=== PATIENT | male | born 1960 | race Caucasian/White ===

== ENCOUNTER 2023-06-11 11:03 | Emergency (ER) | payer MEDICAID, SELFPAY ==
[2023-06-11] VITALS (11 sets, daily range): BP systolic 159–178; BP diastolic 86–95; PULSE 71–89; RESP 13–18; TEMP 36.6–36.7; O2SAT 96–99
--- NOTE | ~2023-06-11 | XR_ITS ---
EXAMINATION: XR chest 2V DATE: 06/11/2023 11:36 INDICATION: Chest pain. TECHNIQUE: Frontal and lateral views of the chest were obtained. COMPARISON: Chest 2 views 08/26/2017 FINDINGS: There is no pneumonia, pleural effusion, or pneumothorax. The heart size is normal. IMPRESSION: 1. No acute cardiopulmonary disease. Reviewed, dictated and finalized at location A. VIBRATOR OPERATOR
--- NOTE | ~2023-06-11 | CT_ITS ---
EXAMINATION:CT diagnostic chest w con DATE: 06/11/2023 13:18 INDICATION: Right chest wall pain. TECHNIQUE: Computed tomography (CT) of the chest was performed with 75 mL Omnipaque 350 intravenous c ontrast. Automated exposure control and iterative reconstruction technique were employed. The dose-le ngth product (DLP) was 259.60 mGy-cm. COMPARISON: Chest 2 views 06/11/2023 FINDINGS: There is mild emphysema. There is mild scarring at the lung apices. In the right upper lobe , there is a 4.6 x 3.1 cm spiculated mass abutting the posterior mediastinum. No pleural effusion. Th e heart size is normal. There are coronary artery calcifications. No pericardial effusion. IMPRESSION: 1. 4.6 x 3.1 cm spiculated mass in right upper lobe abutting the posterior mediastinum, consistent wi primary bronchogenic carcinoma. CT-guided biopsy is recommended. 2. Mild emphysema. Reviewed, dictated and finalized at location A. ARCH TEST ENGINE EVALUATOR IMPRESSION: 1. 4.6 x 3.1 cm spiculated mass in right upper lobe abutting the posterior medi astinum, consistent with primary bronchogenic carcinoma. CT-guided biopsy is re commended. 2. Mild emphysema.
--- NOTE | 2023-06-11 11:13 | ECG_ITS ---
Measurements Intervals [place] Rate: 77 P: 55 NV: 149 QRS: 11 QRSD: 86 T: 42 QT: 342 QTc: 388 Interpretive Statements SINUS RHYTHM POSSIBLE LEFT ATRIAL ENLARGEMENT [-0.1mV P WAVE IN V1/V2] NO PREVIOUS ECG AVAILABLE FOR COMPARISON Electronically Signed On 06-11-2023 13:52:10 DAIRY PRODUCTS MAKER by Elizabeth Beck M.D.
[2023-06-11] MEDS: ASPIRIN 81 MG CHEWABLE TABLET 324 MG PO (11:23)
[2023-06-11 11:29] LABS: Basophils Absolute Auto 0.1 K/mm3 (0.0-0.1); Basophils Percent Auto 0.7 % (0.2-1.2); Eosinophils Absolute Auto 0.2 K/mm3 (0-0.3); Eosinophils Percent Auto 1.9 % (0-4.4); Hematocrit 44.1 % (42.0-52.0); Hemoglobin 14.2 g/dL (14.0-18.0); Immature Granulocyte Absolute 0.02 K/mm3 (0.00-0.031); Immature Granulocyte Percent A 0.2 % (0-0.5); Lymphocytes Absolute Auto 1.52 K/mm3 (0.9-3.2); Lymphocytes Percent Auto 16.7 % (18.3-44.2); Mean Corpuscular HGB Conc 32.2 g/dl (32-36); Mean Corpuscular Hemoglobin 29.6 pg (26-34); Mean Corpuscular Volume 92.1 fl (80-100); Mean Platelet Volume 8.5 fl (7.4-10.4); Monocytes Absolute Auto 0.7 K/mm3 (0.1-0.6); Monocytes Percent Auto 7.9 % (2.6-8.5); Neutrophils Absolute Auto 6.6 K/mm3 (1.3-6.7); Neutrophils Percent Auto 72.6 % (45.5-73.1); Platelet Count Result 378 k/mm3 (150-375); Red Blood Count 4.79 M/mm3 (4.6-6.20); Red Cell Distribution Width 12.5 % (11.5-14.5); White Blood Count 9.1 K/mm3 (4.5-10.0)
[2023-06-11 11:39] LABS: Prothrombin Time 13.2 Seconds (11.1-14.7)
[2023-06-11 11:40] LABS: Partial Thromboplastin Time 32.3 SECONDS (22.3-36.8)
[2023-06-11 11:47] LABS: Alanine Aminotransferase 18 U/L (6-50); Alkaline Phosphatase 106 U/L (38-126); Anion Gap 7 mmol/L (8-16); Aspartate Amino Transferase 26 U/L (17-59); Bilirubin,Total 0.5 mg/dL (0.2-1.3); Blood Urea Nitrogen 13 mg/dL (9-20); Calcium 9.6 mg/dL (8.4-10.2); Carbon Dioxide 21 mmol/L (22-30); Chloride 105 mmol/L (98-107); Estimated CRCL calculation 94 ml/min; Estimated Glomerular Filt Rate > 60; Glucose 160 mg/dL (65-110); Lipase 142 U/L (23-300); Potassium 4.5 mmol/L (3.4-5.0); Sodium 133 mmol/L (137-145)
[2023-06-11 11:58] LABS: Troponin I < 0.012 ng/mL (0.000-0.034)
--- NOTE | 2023-06-11 12:21 | ED.CHESTPAIN ---
HPI - Chest Pain General Chief Complaint: Chest Pain Stated Complaint: Right sd chest pain Time Seen by Provider: 06/11/23 11:22 History of Present Illness HPI narrative: 62-year-old male presenting emergency department for evaluation right-sided chest pain That has been ongoing for the last few months. Patient has not had follow-up with his primary care physician for this. Patient is a long-term smoker. Related Data Allergies Allergy/AdvReac Type Severity Reaction Status Date / Time No Known Allergies Allergy Unverified 06/20/23 14:06 Review of Systems Review of Systems: All systems reviewed & are unremarkable except as noted in HPI and below Exam Narrative: APPEARANCE: Well appearing, no pain, no distress, well-nourished. HEAD: normocephalic, atraumatic. EYES: PERRLA/EOMI, conjunctivae clear. NOSE: Normal no drainage EARS:TMS clear with good light reflex. THROAT: Pharynx clear, no exudate. NECK: Supple. No adenopathy, no masses. RESPIRATORY: Airway patent, respirations nonlabored. Clear to auscultation bilaterally, no rales, rhonchi, wheezing. CARDIOVASCULAR: Regular rate and rhythm without murmurs rubs or gallops. ABDOMINAL: Soft, nontender, nondistended, normal bowel sounds MUSCULOSKELETAL: Moves all extremities. Strength/ROM intact, No edema, No calf tenderness. NEURO: Alert. Cranial nerves II through XII intact. Good gait. Good coordination SKIN: Warm, dry. Normal Color Course Course Emergency Course: 8-year-old male presenting emergency department for evaluation for right-sided chest pain. Chest CT did show a spiculated mass that was concerning for bronchogenic carcinoma. I did discuss the case with pulmonology and they will see the patient as follow-up. Patient will also be set up with a primary care physician. Vital Signs Vital signs: Vital Signs Temperature 98.0 F 06/11/23 11:11 Pulse Rate 89 06/11/23 11:11 Respiratory Rate 18 06/11/23 11:11 Blood Pressure 175/95 H 06/11/23 11:11 Pulse Oximetry 98 06/11/23 11:11 Oxygen Delivery Room Air 06/11/23 11:11 Temperature 98.0 F 06/11/23 15:07 Pulse Rate 75 06/11/23 15:07 Respiratory Rate 16 06/11/23 15:07 Blood Pressure 176/93 H 06/11/23 15:07 Pulse Oximetry 98 06/11/23 15:07 Oxygen Delivery Room Air 06/11/23 11:13 MDM - Chest Pain Lab Data 06/11/23 11:19 06/11/23 11:19 Labs: Lab Results 06/11/23 06/11/23 Range/Units 11:19 14:09 WBC 9.1 (4.5-10.0) K/mm3 RBC 4.79 (4.6-6.20) M/mm3 Hgb 14.2 (14.0-18.0) g/dL Hct 44.1 (42.0-52.0) % MCV 92.1 (80-100) fl MCH 29.6 (26-34) pg MCHC 32.2 (32-36) g/dl RDW 12.5 (11.5-14.5) % Plt Count 378 H (150-375) k/mm3 MPV 8.5 (7.4-10.4) fl Immature Gran % (Auto) 0.2 (0-0.5) % Neut % (Auto) 72.6 (45.5-73.1) % Lymph % (Auto) 16.7 L (18.3-44.2) % Crook % (Auto) 7.9 (2.6-8.5) % Eos % (Auto) 1.9 (0-4.4) % Baso % (Auto) 0.7 (0.2-1.2) % Lymph # (Auto) 1.52 (0.9-3.2) K/mm3 Crook # (Auto) 0.7 H (0.1-0.6) K/mm3 Eos # (Auto) 0.2 (0-0.3) K/mm3 Baso # (Auto) 0.1 (0.0-0.1) K/mm3 Abs Immat Gran (auto) 0.02 (0.00-0.031) K/mm3 Absolute Neuts (auto) 6.6 (1.3-6.7) K/mm3 Absolute Nucleated RBC 0.0 (0.0-0.012) K/mm3 Nucleated RBC % 0.0 (0.0-0.2) % PT 13.2 (11.1-14.7) Seconds INR 1.0 APTT 32.3 (22.3-36.8) SECONDS Sodium 133 L (137-145) mmol/L Potassium 4.5 (3.4-5.0) mmol/L Chloride 105 (98-107) mmol/L Carbon Dioxide 21 L (22-30) mmol/L Anion Gap 7 L (8-16) mmol/L BUN 13 (9-20) mg/dL Creatinine 0.80 (0.7-1.3) mg/dL Estim Creat Clear Calc 94 ml/min Estimated GFR > 60 (59 - ) Glucose 160 H (65-110) mg/dL Calcium 9.6 (8.4-10.2) mg/dL Total Bilirubin 0.5 (0.2-1.3) mg/dL AST 26 (17-59) U/L ALT 18 (6-50) U/L Alkaline Phosphatase 106 (38-126) U/L Troponin I < 0.012 < 0.012 (0.000-0.034) ng/mL
--- NOTE | 2023-06-11 14:08 | ECG_ITS ---
Measurements Intervals [place] Rate: 67 P: 53 ME: 149 QRS: 39 QRSD: 91 T: 44 QT: 363 QTc: 383 Interpretive Statements SINUS RHYTHM POSSIBLE LEFT ATRIAL ENLARGEMENT [-0.1mV P WAVE IN V1/V2] COMPARED TO ECG 06/11/2023 11:15:33 NO SIGNIFICANT CHANGES Electronically Signed On 06-12-2023 14:59:50 TAXONOMY TEACHER by Elizabeth Beck M.D.
[2023-06-11 14:39] LABS: Troponin I < 0.012 ng/mL (0.000-0.034)
== END 2023-06-11 15:10 | disposition home or self-care (01) ==
PROVIDERS: Emergency Provider Emergency Medicine
DX: R91.8 Other nonspecific abnormal finding of lung field (principal); R94.31 Abnormal electrocardiogram [ECG] [EKG]
CPT/HCPCS: 36415; 71046; 71260; 80053; 83690; 84484; 85025; 85610; 85730; 93005; 99284; A9270; Q9967

== ENCOUNTER 2023-07-29 11:36 | Outpatient (CLI) | payer MEDICAID, SELFPAY ==
--- NOTE | 2023-08-19 10:51 | WPDPFTINT ---
PFT Procedure Performed PFT Procedure Performed Plethysmography (Lung Vol) Diffusing Cap (DLCO) Flow Vol Loop Spirometry w/o Bronchodil PFT Interpretation DOS: 07/29/2023 REQUESTING: Hunter Kaiser MD REASON FOR TESTING: lung cancer PULMONARY FUNCTION TESTS As of August 02, 2022, the Global Lung Initiative reference equations are used in interpretation of spirometry, lung volumes and diffusing capacity. Race and ethnicity are not included as variables in the interpretation strategy. Results are reliable and reproducible. Repeatability of spirometry FEV1 maneuver is Grade A. Spirometry: The FEV1 is 3.37 L, 89%, normal.. The FVC is 4.13 L, 84%, normal. The FEV1/FVC ratio is 82%, normal. Lung volumes: The total lung capacity is 6.82 L, 92%. The residual volume is 2.69 L, 113%. The RV/TLC is 39%. Airway resistance is 139%. Diffusion: DLCO is 23.8, 82%. The DLCO/VA is 3.79, 92%. Flow volume loop: The flow volume loop is normal. IMPRESSION: This study shows normal spirometry, normal lung volumes and normal diffusion. No bronchodilator was administered. No prior studies for comparison. Gudelia Rivas MD
== END 2023-07-29 11:37 | disposition home or self-care (01) ==
PROVIDERS: PCP Emergency Medicine; Visit Provider Internal Medicine Hematology & Oncology
DX: C34.11 Malignant neoplasm of upper lobe, right bronchus or lung (principal)
CPT/HCPCS: 94375; 94726; 94729

== ENCOUNTER 2023-08-13 11:08 | Outpatient (CLI) | payer MEDICAID, SELFPAY ==
[2023-08-13 11:37] LABS: Basophils Percent Auto 0.1 % (0.2-1.2); Eosinophils Percent Auto 0.2 % (0-4.4); Hematocrit 43.1 % (42.0-52.0); Hemoglobin 14.4 g/dL (14.0-18.0); Immature Granulocyte Absolute 0.11 K/mm3 (0.00-0.031); Immature Granulocyte Percent A 0.7 % (0-0.5); Lymphocytes Absolute Auto 2.63 K/mm3 (0.9-3.2); Lymphocytes Percent Auto 16.3 % (18.3-44.2); Mean Corpuscular HGB Conc 33.4 g/dl (32-36); Mean Corpuscular Hemoglobin 30.1 pg (26-34); Mean Corpuscular Volume 90.2 fl (80-100); Mean Platelet Volume 8.7 fl (7.4-10.4); Monocytes Absolute Auto 1.3 K/mm3 (0.1-0.6); Monocytes Percent Auto 8.1 % (2.6-8.5); Neutrophils Percent Auto 74.6 % (45.5-73.1); Platelet Count Result 471 k/mm3 (150-375); Red Blood Count 4.78 M/mm3 (4.6-6.20); Red Cell Distribution Width 12.8 % (11.5-14.5); White Blood Count 16.1 K/mm3 (4.5-10.0)
[2023-08-13 11:51] LABS: Prothrombin Time 13.3 Seconds (11.1-14.7)
== END 2023-08-13 11:09 | disposition home or self-care (01) ==
LOC: ANHSURGERY 11:09
PROVIDERS: PCP Emergency Medicine; Visit Provider Surgery
DX: Z01.818 Encounter for other preprocedural examination (principal); C34.90 Malignant neoplasm of unspecified part of unspecified bronchus or lung
CPT/HCPCS: 36415; 85025; 85610; 85730

== ENCOUNTER 2023-08-19 04:43 | Day surgery (SDC) | payer MEDICAID, SELFPAY ==
[2023-08-12 15:42] VITALS: BMI 26.9
--- NOTE | 2023-08-12 15:50 | PC.NURSE ---
Report to the Outpatient Waiting Room, entrance under the green pavilion located off [facility], at time 11:30 on date 08/19/23. Planned Procedure Time: 1:30. Time changes happen often and if your time is changed the preop area will call you the afternoon before. - You and your visitor will be asked to self-screen and do not enter if you have any COVID symptoms. - A mask is optional within the hospital at this time. Patients may have clear liquids (water, carbonated beverages, clear teas, apple juice) until 3 hours prior to surgery (10:30) with a maximum of 20 ounces. - No food from midnight until time of surgery Take the following medications with a SIP of water the morning of surgery: STEROID AND PAIN PILL IF NEEDED DO NOT STOP ANY OF YOUR OTHER PRESCRIPTION MEDICATIONS PRIOR TO SURGERY ?EXCEPT THE FOLLOWING Medications to discontinue per physician: N/A Date to take last dose: N/A Please no make-up, nail korean, hairspray, perfume, deodorant, or body powder the day of surgery. No jewelry (including any body piercings) or valuables the day of surgery, leave them at home. Please take a shower or bath the night before, or the morning of, surgery with an antibacterial soap. Wear comfortable, loose fitting clothing. - Jewelry must be removed prior to entering the operating room. Rings and piercings that are not removed may be cut off. - The hospital will not accept responsibility for valuables. - Please leave all valuables, including medications, at home the day of surgery. If you are going home after surgery, a licensed flag car driver must drive you home. - NO public transportation without another adult if you receive anesthesia. - We recommend that an adult stay with you for 24 hours following discharge. - We also recommend that you do not drive, make important decision, drink alcoholic beverages, or take any drugs that were not prescribed by your health care provider for at least 24 hours after your discharge time. Follow any additional instructions given to you from your surgeon. If you or anyone in your household have experienced Covid symptoms in the past week, please notify your surgeon or the nurse liaison at the phone number below for possible testing. Telephone instructions given to PT AND SPOUSE and asked if any additional questions and then verbalized understanding. Patient advised to call surgeon office or pre surgery nurse liaison [phone] if any additional questions.
--- NOTE | ~2023-08-19 | XR_ITS ---
EXAMINATION: XR chest port-a-cath/central DATE: 08/19/2023 15:12 INDICATION: Port placement. TECHNIQUE: A single frontal view of the chest was obtained on 2 radiographs. COMPARISON: Chest 2 views 06/11/23, chest CT 06/11/23 FINDINGS: There is mild scarring at the lung apices. No pleural effusion or pneumothorax. The heart s ize is normal. There is a right subclavian port with tip in superior vena cava. There are old healed left rib fractures. IMPRESSION: 1. Mild scarring at the lung apices. 2. Port tip in superior vena cava. Reviewed, dictated and finalized at location E.
--- NOTE | ~2023-08-19 | XR_ITS ---
EXAMINATION: XR fl guide central line place DATE: 08/19/2023 14:20 CDT INDICATION: PORT A CATH INSERTION . TECHNIQUE: 1 fluoroscopic image of the chest were obtained during Port-A-Cath insertion, performed by Cong Preito MD. I was not present during the procedure. Fluoroscopy exposure time was 25.1 second s. Air Kerma 4.7729 mGy. DAP 0.0946 mGym2. COMPARISON: None FINDINGS/IMPRESSION: Fluoroscopic documentation of Port-A-Cath insertion. Please refer to the operative note for complete procedural details. Reviewed, dictated and finalized at location K.
[2023-08-19 12:42] VITALS: BP 140/91; PULSE 79; RESP 14; TEMP 37.6; O2SAT 97
[2023-08-19] MEDS: LACTATED RINGERS 1,000 ML 30 ML IV CONT (12:48)
--- NOTE | 2023-08-19 13:00 | P.PNAN_ITS ---
Anes - Initial Pre Proc Eval Procedure: Operation Date: 08/19/23 13:30 Proposed Procedures p Insertion Romina Cath - Cong Prieto MD Date/Time: 08/19/23 13:00 Surgeon: Cong Prieto MD Pre Op Diagnosis: malignant neoplasm of right lung Patient Data Age: 63 Gender: M Height: 1.83 m Weight: 86 kg Last Vital Signs Temp 99.7 F H 08/19/23 12:42 Pulse 79 08/19/23 12:42 Resp 14 08/19/23 12:42 BP 140/91 H 08/19/23 12:42 Pulse Ox 97 08/19/23 12:42 O2 Del Method Room Air 08/19/23 12:42 Allergies Allergy/AdvReac Type Severity Reaction Status Date / Time No Known Allergies Allergy Verified 08/19/23 12:51 Home Medications Medication Instructions Recorded Confirmed Type dexamethasone 4 mg tablet 4 mg PO TID 08/12/23 08/13/23 History hydrocodone 10 mg-acetaminophen 1 tablet PO TID PRN Pain 08/12/23 08/19/23 History 325 mg tablet Patient hx anesthesia problems: none Family hx anesthesia problems: none Results Review: All pre-operative results and documents have been reviewed as part of the pre- operative evaluation. [facility] Social History Social History Smoking packs per day: 2 Smoking cigarettes per day: 40.0 Years smoked: 49 Smoking pack-years: 98.00 Smoking status: Current every day smoker Tobacco type: cigarettes Additional smoking assessment comments: smoking more than 2 packs at sometimes, and less than a pack currenetly Alcohol intake: current Drinks per week: 45 Alcohol use details: BEER [employer] WHISKEY Substance use: current Substance use type: marijuana Living arrangements: with family Spiritual care concerns: No Anes - Eval Final PreProcedure Day of Procedure 08/19/23 13:00 Patient weight: normal Heart: regular rate and rhythm Lungs: clear to auscultation and decreased breath sounds Airway: Mallampati scale and special considerations (Teeth in very poor repair throughout. None loose per his report. ) Neurological: alert and oriented Last oral intake: >/= 8 hours ASA classification: III Emergent: no Anesthetic plan: proceed Anesthesia type and monitoring: general GIVS and standard monitoring Results Review: All pre-operative results and documents have been reviewed as part of the pre- operative evaluation. Lung CA, w mets to spine, now for port. PFTs reviewed. Pt smokes cigarettes this am, approx 1100 am. Informed Consent: The patient's anesthetic plan and its attendant risks and benefits were discussed with the patient/family/POA. Questions were solicited and answers provided to the satisfaction of the patient/family/POA.
--- NOTE | 2023-08-19 14:08 | PM.IMHP ---
H&P: HPI History of Present Illness Date/Time: 08/19/23 14:08 Chief Complaint: Right lung CA Narrative: Pt diagnosed with right lung CA. He is to undergo Chem/Rad tx. Presents today for placement of portacatheter. Never had port in the past. Review of Systems Review of Systems: The remainder of the review of systems to include constitutional, HEENT, cardiovascular, respiratory, GI, , integumentary, musculoskeletal, endocrine, immunologic, hematologic, psychiatric, and neurologic are all negative except for which is mentioned above in the HPI. [facility] Social History Social History Smoking packs per day: 2 Smoking cigarettes per day: 40.0 Years smoked: 49 Smoking pack-years: 98.00 Smoking status: Current every day smoker Tobacco type: cigarettes Additional smoking assessment comments: smoking more than 2 packs at sometimes, and less than a pack currenetly Alcohol intake: current Drinks per week: 45 Alcohol use details: BEER [employer] WHISKEY Substance use: current Substance use type: marijuana Living arrangements: with family Spiritual care concerns: No Meds Home Medications and Allergies Home Medications Medication Instructions Recorded Confirmed Type dexamethasone 4 mg tablet 4 mg PO TID 08/12/23 08/13/23 History hydrocodone 10 mg-acetaminophen 1 tablet PO TID PRN Pain 08/12/23 08/19/23 History 325 mg tablet Allergies Allergy/AdvReac Type Severity Reaction Status Date / Time No Known Allergies Allergy Verified 08/19/23 12:51 Vital Signs Vital Signs - 24 hr 08/19/23 12:42 Temperature 37.6 C H Pulse Rate 79 Respiratory Rate 14 Blood Pressure 140/91 H Pulse Oximetry 97 Oxygen Delivery Room Air Exam Const: General: comfortable and no acute distress HENMT: Ears: TM's normal bilaterally Face/Nose/Sinus: Normal nares present Mouth: Yes moist mucous membranes Eyes: General: appearance normal, both eyes and all related structures Sclera: sclerae normal Pupils: Equal, round and reactive pupils present Neck: Neck: supple and no JVD Resp: Effort & Inspection: normal respiratory effort Auscultation: clear to auscultation bilaterally Cardio: Rate: regular rate Rhythm: regular rhythm GI: GI Palp: Yes Soft to palpation, No Firmness to palpation present (GI), No Tenderness to palpation present (GI), No Guarding due to palpation present (GI) and No Hernia present Skin: General skin exam: normal color and no rashes or lesions noted Neuro: General: gait normal Speech: normal speech Extrem: General: normal to inspection Psych: Mental Status: mental status grossly normal Affect: normal affect Assessment and Plan Assessment and plan (1) Lung cancer: Code(s): C34.90 - Malignant neoplasm of unspecified part of unspecified bronchus or lung Status: Acute Assessment and Plan: Pt has right lung ca, he is to undergo chemo/rad tx. Will place portacatheter today under IV sedation. Risks, benefits, indications, and expected outcomes were discussed in detail with the patient and/or family. They understand and I have answered all other questions. They wished to proceed with surgery as outlined above. Specific risk of iatrogenic pneumothorax and need for chest tube as well as bleeding needing blood transfusion discussed.
[2023-08-19] MEDS: ceFAZolin 2 GM/D5W 50 ML 2 GM/50 ML BAG IVPB (14:10)
--- NOTE | 2023-08-19 14:12 | WPDHPUPDATE1 ---
History and Physical Update Update Date/Time: 08/19/23 14:12 History and Physical has been reviewed, including an updated exam of the patient. There are NO changes in the patient's condition. Risks, benefits, and alternatives have been discussed and questions answered. Patient agrees to proceed with procedure.
[2023-08-19] MEDS: LIDO 1%/EPINEPHRINE 1:100,000 20 ML VIAL 10 ML INFILTRATE (14:41)
[2023-08-19] MEDS: BUPivacaine HCL 0.5% 10 ML AMP INFILTRATE (14:43)
[2023-08-19 14:56] VITALS: BP 133/63; PULSE 77; RESP 16; O2SAT 97
--- NOTE | 2023-08-19 14:57 | PM.OP ---
Procedure Note - Brief Procedure Note - Brief Date of procedure: 08/19/23 malignant neoplasm of right lung Post-op diagnosis: Same Procedure performed: Placement of right subclavian vein single-lumen port a catheter with intraoperative fluoroscopy Surgeon: Cong Prieto MD Anesthesia: MAC Implants: 9.6 [place] single-lumen catheter attached to Smart Port Estimated blood loss (mL): 10 Drains: No Packing: No Pathology: None sent Complications: No immediate complications Condition: Stable Disposition: PACU
[2023-08-19 15:26] VITALS: BP 135/66; PULSE 78; RESP 16
--- NOTE | 2023-08-21 17:10 | W.PM.PROC2 ---
Procedure Note - Detailed Date of Procedure 08/19/23 Pre-op Diagnosis malignant neoplasm of right lung Post-op Diagnosis Same Procedure Performed Placement of right subclavian vein yessica catheter with intraoperative fluoroscopy Surgeon Cong Prieto MD Anesthesia MAC Indications Patient is a 63 gentleman who recently was diagnosed with right lung cancer which appears to be inoperable. He is to undergo chemotherapy and radiation treatments. He presents now for placement of yessica catheter for the chemotherapy treatments. Findings None. Description of Procedure After informed consent was obtained the patient brought to the operating room and placed supine position. The bilateral upper anterior neck and chest was then prepped and draped in usual sterile fashion. A time-out was then performed correctly identifying the patient as well as procedure to be performed. He was given perioperative IV antibiotics. I then approach placement of the port catheter in the right subclavian vein. 1% lidocaine mixed with 0.5% Marcaine 50 50 mixture was injected just below the medial 3rd of the right clavicle. I then made transverse incisions over the scalp were then dissected down through subcutaneous tissues down to the anterior pectoralis fascia. I then created the she is port pocket with electrocautery and blunt finger dissection just below the incision. The patient was then placed in the head-down Trendelenburg position and then a long 18gauge spinal needle was then used to cannulate the right subclavian vein on the 1st pass any difficulty. There was prompt return of dark venous appearing blood. A guidewire was advanced through the needle into the right subclavian vein and down into the superior vena cava. I then performed intraoperative fluoroscopy to confirm the proper positioning of the guidewire. I then proceeded to advance a dilator breakaway sheath over the guidewire and then removed the dilator and guidewire leaving the sheath in place. A 9.6 Algerian single-lumen catheter was then advanced through the sheath into the right subclavian vein assess we down into the right atrium of the heart. The sheath was then torn away leaving the catheter in place. Then utilizing intraoperative fluoroscopy once more to visualize the tip of the catheter and pulled back on the catheter until the tip was in the distal superior vena cava. The catheter was then cut to the appropriate length at the skin level. It was then attached to the Smart Port. The port was then placed in the subcu port pocket and secured on 3 sides utilizing 3-0 Prolene sutures. The port was then accessed in an aspirated blood easily and was flushed with heparinized saline solution. I irrigated out the port pocket with sterile saline solution. Hemostasis was good. I then proceeded to close incision utilizing interrupted 3-0 Vicryl sutures in subcutaneous tissues. The skin edges were then approximated utilizing a running subcuticular 4 Monocryl suture. I accessed the port 1 last time percutaneously and again daysi back blood easily and was flushed with 5000units of heparinized solution IV. The incision was then cleaned and then skin glue was applied to of the incision. Postprocedure chest x-ray was obtained there is no evidence of pneumothorax with good positioning tip of the catheter distal superior vena cava. The patient tolerated the procedure well no complications. All sponges, needles, and instrument counts were correct at the end procedure. EBL was _20__cc. The patient was awakened and taken to recovery in stable and satisfactory condition. Implants 9.6 Algerian silastic single-lumen catheter attached to Smart Port Via the right subclavian vein. Estimated Blood Loss 20 Drains No Packing No Pathology None sent Complications No immediate complications Condition Stable Disposition PACU [facility] Billing Surgery - Charge Forward: Surgery Billing
== END 2023-08-19 15:36 | disposition home or self-care (01) ==
PROVIDERS: PCP Emergency Medicine; Visit Provider Surgery
PROC: (CPT 36561; principal; 2023-08-19 13:30)
DX: C34.91 Malignant neoplasm of unspecified part of right bronchus or lung (principal); F17.210 Nicotine dependence, cigarettes, uncomplicated; Z79.891 Long term (current) use of opiate analgesic
CPT/HCPCS: 36561; 77001; C1788; J0690; J1644; J2704; J3010; J7030; J7120

== ENCOUNTER 2023-08-21 14:36 | Outpatient (CLI) | payer MEDICAID, SELFPAY ==
--- NOTE | ~2023-08-21 | MR_ITS ---
EXAMINATION: MR brain/brain stem wo/w con DATE: 08/21/2023 15:46 INDICATION: Staging for lung cancer. TECHNIQUE: Magnetic resonance imaging (MRI) of the brain and brainstem was performed without and with 17 mL MultiHance intravenous contrast. COMPARISON: None. FINDINGS: There is no intracranial hemorrhage, acute infarction, or abnormal intracranial mass lesion . There are scattered areas of nonspecific increased T2-weighted signal intensity in the cerebral whi te matter, which is within normal limits for the patient's age. The ventricles are normal in size. Th ere is mild mucosal thickening in the ethmoid sinuses. The orbits are normal. There is a trace right mastoid effusion. IMPRESSION: 1. No evidence of metastatic disease. Reviewed, dictated and finalized at location E.
== END 2023-08-21 14:37 | disposition home or self-care (01) ==
LOC: ANHIMG 14:36
PROVIDERS: PCP Emergency Medicine; Visit Provider Radiology Radiation Oncology
DX: C34.90 Malignant neoplasm of unspecified part of unspecified bronchus or lung (principal)
CPT/HCPCS: 70553; A9577

== ENCOUNTER 2023-11-21 08:28 | Outpatient (CLI) | payer OTHER, SELFPAY ==
--- NOTE | ~2023-11-21 | CT_ITS ---
Clinical Indication: Lung cancer CT Scan of the Chest with Contrast: Technique: Contiguous sections were acquired throughout the chest after intravenous administration of 75 cc of Omnipaque 350. Dose reduction technique was used on this scan by utilizing automated exposu re control and iterative reconstruction technique. The dose-length product (DLP) was 211.89 mGy-cm. COMPARISON: 06/11/2023 Findings: There is no evidence of any significant mediastinal, hilar or axillary lymphadenopathy. There is no f illing defect in the pulmonary arterial tree to suggest pulmonary embolus. There is no evidence of ao rtic dissection or aneurysm. There is no evidence of pleural or pericardial effusion. There is bilateral upper lobe emphysema. There is irregular pleural thickening/consolidation at the m edial right lung apex/upper lobe, mildly decreased in extent from prior exam, which could reflect jarett ated disease/interval response to therapy. Images through the upper abdomen reveal no abnormalities. Impression: Decreased irregular pleural-based consolidation at the medial right lung apex/upper lobe, which is co mpatible with partial response to therapy. Upper lobe emphysema, unchanged. Reviewed, dictated and finalized at location M. Impression: Decreased irregular pleural-based consolidation at the medial right lung apex/u pper lobe, which is compatible with partial response to therapy. Upper lobe emphysema, unchanged.
== END 2023-11-21 08:29 | disposition home or self-care (01) ==
PROVIDERS: PCP Emergency Medicine; Visit Provider Internal Medicine Hematology & Oncology
DX: C34.11 Malignant neoplasm of upper lobe, right bronchus or lung (principal); J43.9 Emphysema, unspecified
CPT/HCPCS: 71260; Q9967

== ENCOUNTER 2024-02-06 10:49 | Outpatient (CLI) | payer OTHER, SELFPAY ==
--- NOTE | ~2024-02-06 | CT_ITS ---
Clinical Indication: Lung cancer CT Scan of the Chest with Contrast: Technique: Contiguous sections were acquired throughout the chest after intravenous administration of 75 cc of Omnipaque 350. Dose reduction technique was used on this scan by utilizing automated exposu re control and iterative reconstruction technique. The dose-length product (DLP) was 321.06 mGy-cm. COMPARISON: 11/21/2023 Findings: There is no evidence of any significant mediastinal, hilar or axillary lymphadenopathy. There is no f illing defect in the pulmonary arterial tree to suggest pulmonary embolus. There is no evidence of ao rtic dissection or aneurysm. There is no evidence of pleural or pericardial effusion. 3.3 x 1.9 cm pleural-based, spiculated mass at the posterior medial right lung apex is stable to mini marion decreased from prior exam. Bilateral upper lobe emphysema present. Images through the upper abdomen reveal no abnormalities. Impression: Spiculated pleural-based mass at the posterior medial right lung apex is stable to minimally decrease d from prior exam. Bilateral upper lobe emphysema. Reviewed, dictated and finalized at location . Impression: Spiculated pleural-based mass at the posterior medial right lung apex is stable to minimally decreased from prior exam. Bilateral upper lobe emphysema.
== END 2024-02-06 10:50 | disposition home or self-care (01) ==
LOC: ANHIMG 10:51
PROVIDERS: PCP Emergency Medicine; Visit Provider Internal Medicine Hematology & Oncology
DX: C34.11 Malignant neoplasm of upper lobe, right bronchus or lung (principal); J43.9 Emphysema, unspecified
CPT/HCPCS: 71260; Q9967

== ENCOUNTER 2024-05-01 08:10 | Outpatient (CLI) | payer OTHER, SELFPAY ==
--- NOTE | ~2024-05-01 | CT_ITS ---
EXAMINATION: CT diagnostic chest w con DATE: 05/01/2024 08:28 INDICATION: Mal valente of rt lung TECHNIQUE: Computed tomography (CT) of the chest was performed with 100 mL Omnipaque-350 intravenous contrast. Additional 3D reconstructions utilizing coronal maximum intensity projection (MIP) were per formed. Automated exposure control and iterative reconstruction technique were employed. The dose-salvatore gth product was 256.81 mGy-cm. COMPARISON: 02/06/2024 FINDINGS: Mild to moderate paraseptal predominant emphysema and associated pleural parenchymal scarring in the bilateral upper lungs. No change to minimal decrease in size of a pleural-based mass at the posterior medial right upper lobe consistent with treated lung cancer. Reticular opacities and associated volu me loss consistent with likely radiation pneumonitis. No new pulmonary nodules, pneumonia, pulmonary edema or pleural effusion. Heart size normal. Atherosclerotic coronary artery calcification. Thoracic aorta is normal caliber with no dissection. No pathologically enlarged thoracic lymphadenopathy. Mil d to moderate thoracic spondylosis. IMPRESSION: 1. No change to minimal decrease in size of a spiculated pleural-based mass at the posterior medial r ight upper lobe consistent with response to treatment of reported lung cancer. 2. Moderate paraseptal emphysema and pleural parenchymal scarring in the bilateral upper lungs. Reviewed, dictated and finalized at location A. ER WORKER IMPRESSION: 1. No change to minimal decrease in size of a spiculated pleural-based mass at the posterior medial right upper lobe consistent with response to treatment of reported lung cancer. 2. Moderate paraseptal emphysema and pleural parenchymal scarring in the bilate ral upper lungs.
== END 2024-05-01 08:11 | disposition home or self-care (01) ==
PROVIDERS: PCP Emergency Medicine; Visit Provider Internal Medicine Hematology & Oncology
DX: C34.11 Malignant neoplasm of upper lobe, right bronchus or lung (principal); J43.9 Emphysema, unspecified
CPT/HCPCS: 71260; Q9967

== ENCOUNTER 2024-09-24 08:31 | Outpatient (CLI) | payer OTHER, SELFPAY ==
--- NOTE | ~2024-09-24 | CT_ITS ---
Clinical Indication: Lung cancer CT Scan of the Chest with Contrast: Technique: Contiguous sections were acquired throughout the chest after intravenous administration of 75 cc of Omnipaque 350. Dose reduction technique was used on this scan by utilizing automated exposu re control and iterative reconstruction technique. The dose-length product (DLP) was 218.63 mGy-cm. COMPARISON: 05/01/2024 Findings: There is no evidence of any significant mediastinal, hilar or axillary lymphadenopathy. There is no f illing defect in the pulmonary arterial tree to suggest pulmonary embolus. There is no evidence of ao rtic dissection or aneurysm. There is no evidence of pleural or pericardial effusion. Stable probable postradiation change or other scarring in the medial right upper lobe extending towar ds the hilum. There is emphysematous change at the lung apices, similar to prior exam. Stable left ap ical scarring. Images through the upper abdomen reveal no abnormalities. Impression: Stable probable postradiation change in the medial right upper lobe extending to the hilum. Stable upper lobe/apical emphysematous change. Reviewed, dictated and finalized at location . Impression: Stable probable postradiation change in the medial right upper lobe extending t o the hilum. Stable upper lobe/apical emphysematous change.
--- OUTSIDE RECORDS SUMMARY | 2024-09-24 08:34 | XMS_ITS | Clinical Summary ---
Author Organization [facility] Address [address] [place] [address] Care Team Providers Care Kiln Remover Name Role Phone No, Physician Primary Care Provider [phone] Allergies No known active allergies Medications cyclobenzaprine (FLEXERIL) 10 mg tablet Take 1 tablet (10 mg total) by mouth 2 (two) times a day as needed for muscle spasms 20 tablet 06/15/2022 Active ketorolac (TORADOL) 10 mg tablet Take 1 tablet (10 mg total) by mouth every 6 (six) hours as needed for pain 20 tablet 06/15/2022 Active Social History Tobacco Use Types Packs/Day Years Used Date Smoking Tobacco: Never Assessed Personal Safety Answer Date Recorded Getting School Help Needed Not on file 06/13 Sex and Gender Information Value Date Recorded Sex Assigned at Not on file Legal Sex Male 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 Gender Identity Not on file Sexual Orientation Not on file Last Filed Vital Signs Vital Sign Reading Time Taken Comments Blood Pressure 159/82 06/15/2022 11:43 PM UTILITY TRACTOR OPERATOR Pulse 89 06/15/2022 11:43 PM UTILITY TRACTOR OPERATOR Temperature 36.6 C (97.9 F) 06/15/2022 11:43 PM UTILITY TRACTOR OPERATOR Respiratory Rate 16 06/15/2022 11:4 3 PM UTILITY TRACTOR OPERATOR Oxygen Saturation 96% 06/15/2022 11: 43 PM UTILITY TRACTOR OPERATOR Inhaled Oxygen Concentration - - Weight 92.5 kg (203 lb 14.8 oz) 06/15/2022 8:52 PM UTILITY TRACTOR OPERATOR Height 182.9 cm (6') 06/15/2022 8:52 PM UTILITY TRACTOR OPERATOR Body Mass Index 27.66 06/15/2022 8:52 PM UTILITY TRACTOR OPERATOR Plan of Treatment Health Maintenance Due Date Last Done Comments Colon Cancer Screening-Colonoscopy 1962 Depression Screening 1962 Hepatitis C Screening 1962 Prostate Cancer Screening-PSA 1962 DTaP/Tdap/Td Vaccine (1 - Tdap) 1973 Hepatitis B Screening 1980 Regular Well Visit/Exam 18-64 1980 Zoster Vaccine (1 of 2) 2012 Influenza Vaccine (#1) 2024 Pneumococcal vaccine <65 Aged Out No longer eligible based on patient's age to complete this topic [place] [id number] Care Teams Kiln Remover Relationship Specialty Start Date End Date No, Physician PCP - General 06/15/22
--- OUTSIDE RECORDS SUMMARY | 2024-09-24 08:34 | XMS_ITS | CONTINUITY OF CARE DOCUMENT ---
Author Name alanis thapa Address Unknown Organization [facility] Address [address] [place] [address] [address] [place] [address] Phone [phone] Care Team Providers Care Air Bag Stripper Name Role Phone Javier Ritter MD Unavailable MAYKEL FRANCISCO MD Unavailable [phone] MAYKEL FRANCISCO MD Unavailable [phone] INSURANCE PROVIDERS Payer name Policy type / Coverage type [place] red libertarian ID [id number]
--- OUTSIDE RECORDS SUMMARY | 2024-09-24 08:34 | XMS_ITS | Clinical Summary ---
Author Organization [facility] Shannan jackson [employer] Address [address] [place] [address] Care Team Providers Care Ethanol Operations Manager Name Role Phone Unavailable Primary Care Provider Unavailabl e Allergies Active Allergy Reactions Criticality Noted Date Comments Hornet Venom Anaphylaxis High 09/30/2018 Medications gabapentin (NEURONTIN) 300 mg capsule Take 1 Capsule (300 mg) by mouth 3 times daily. 90 Capsule 3 12/04/2023 Active Active Problems No known active problems Encounters Date Type Department Care Team Description 09/21/2024 Orders Only [facility] Oncology and Hematology - [address] Hunter Kaiser MD Benign hypertension 09/18/2024 Orders Only [facility] Oncology and Hematology - [address] [place] [phone] Hunter Kaiser MD 09/17/2024 Orders Only [facility] Oncology and Hematology - [address] [place] [phone] Hunter Kaiser MD 09/15/2024 Orders Only [facility] Oncology and Hematology - [address] [place] [address] Hunter Kaiser MD 09/14/2024 Orders Only [facility] Oncology and Hematology - [address] [place] [phone] Hunter Kaiser MD Malignant neoplasm of upper lobe of right lung (CMS/HCC) 09/07/2024 Orders Only [facility] Oncology and Hematology - [place] Hunter Kaiser MD Benign hypertension 09/03/2024 9:15 AM CDT Office Visit [facility] Oncology and Hematology - [address] Hunter Kaiser MD Malignant neoplasm of upper lobe of right lung (CMS/HCC) (Primary Dx) 09/03/2024 Orders Only [facility] Oncology and Hematology - [address] Hunter Kaiser MD 08/31/2024 Orders Only [facility] Oncology and Hematology - [address] Hunter Kaiser MD Malignant neoplasm of upper lobe of right lung (CMS/HCC) 08/24/2024 Orders Only [facility] Oncology and Hematology - [address] [place] [phone] Hunter Kaiser MD Malignant neoplasm of upper lobe of right lung (CMS/HCC); Benign hypertension 08/21/2024 Orders Only [facility] Oncology and Hematology - [place] Hunter Kaiser MD 08/20/2024 Orders Only [facility] Oncology and Hematology - [address] [place] [phone] Hunter Kaiser MD Chronic anemia (Primary Dx) 08/19/2024 Orders Only [facility] Oncology and Hematology - [address] [place] [phone] Hunter Kaiser MD Malignant neoplasm of upper lobe of right lung (CMS/HCC) (Primary Dx) 08/17/2024 Orders Only [facility] Oncology and Hematology - [address] [place] [address] Hunter Kaiser MD Malignant neoplasm of upper lobe of right lung (CMS/HCC) 08/10/2024 Orders Only [facility] Oncology and Hematology - [address] [place] [address] Hunter Kaiser MD Malignant neoplasm of upper lobe of right lung (CMS/HCC); Benign hypertension 08/07/2024 Orders Only [facility] Oncology and Hematology - [address] [place] [address] Hunter Kaiser MD 08/06/2024 Orders Only [facility] Oncology and Hematology - [place] [place] [address] Hunter Kaiser MD 08/03/2024 Orders Only [facility] Oncology and Hematology - [address] [place] [id number] Hunter Kaiser MD Malignant neoplasm of upper lobe of right lung (CMS/HCC) 07/27/2024 Orders Only [facility] Oncology and Hematology - [address] [place] [address] Hunter Kaiser MD Malignant neoplasm of upper lobe of right lung (CMS/HCC); Benign hypertension 07/20/2024 Orders Only [facility] Oncology and Hematology - [address] [place] [address] Hunter Kaiser MD Malignant neoplasm of upper lobe of right lung (CMS/HCC) 07/13/2024 Orders Only [facility] Oncology and Hematology - [address] [place] [id number] Hunter Kaiser MD Malignant neoplasm of upper lobe of right lung (CMS/HCC); Benign hypertension 07/06/2024 Orders Only [facility] Oncology and Hematology - [address] [place] [phone] Hunter Kaiser MD Malignant neoplasm of upper lobe of right lung (CMS/HCC) 06/29/2024 Orders Only [facility] Oncology and Hematology - [address] [place] [address] Hunter Kaiser MD Malignant neoplasm of upper lobe of right lung (CMS/HCC); Benign hypertension from Last 3 Months Family History Medical History Relation Name Comments Lung Cancer Brother 1 Lung Cancer Brother 2 Diabetes Father Heart Disease Father Relation Name Status Comments Brother 1 Brother 2 Father Mother Sister Social History Tobacco Use Types Packs/Day Years Used Date Smoking Tobacco: Every Day Cigarettes Smokeless Tobacco: Never Tobacco Cessation:Ready to Q uit: Not Asked; Counseling Given: Not Answered Alcohol Use Standard Drinks/Week Comments Yes 0 (1 standard drink = 0.6 oz pur e alcohol) Sex and Gender Information Value Date Recorded Sex Assigned at Not on file Legal Sex Male 2:22 PM DE ICER KIT ASSEMBLER Gender Identity Not on file Sexual Orientation Not on file Last Filed Vital Signs Vital Sign Reading Time Taken Comments Blood Pressure 152/81 09/03/2024 9:12 AM CDT Pulse 77 09/03/2024 9:09 AM CDT Temperature 36.2 C (97.1 F) 09/03/2024 9:09 AM CDT Respiratory Rate 15 09/03/2024 9:09 AM CDT Oxygen Saturation 96% 09/03/2024 9:09 AM CDT Inhaled Oxygen Concentration - - Weight 88 kg (194 lb) 09/03/2024 9:09 AM CDT Height 182.9 cm (6') 07/08/2023 8:10 AM DE ICER KIT ASSEMBLER Body Mass Index 26.31 07/08/2023 8:10 AM DE ICER KIT ASSEMBLER Plan of Treatment Upcoming Encounters Date Type Department Care Team (Late st Contact Info) Description 10/01/2024 9:00 AM CDT Office Visit [facility] Oncology and Hematology - [address] [place] [address] Hunter Kaiser MD [address] [facility] [address] [place] [address] Health Maintenance Due Date Last Done Comments Pre-Diabetes and Diabetes Screening 1962 DTAP/TDAP/TD VACCINES (1 - Tdap) 1981 COLORECTAL SCREENING 2007 Colorectal Cancer Screening 2007 FIT-DNA Q 3 years 2007 FIT/FOBT Q 1 year 2007 Flex Sig/CT Colonography Q 5 years 2007 ZOSTER VACCINE (1 of 2) 2012 INFLUENZA VACCINE (#1) 2023 RSV VACCINE (60+ or ) (1 - 1-dose 75+ series) 2037 Procedures Procedure Name Priority Date/Time Associated Diagnosis Comments BASIC METABOLIC PANEL Routine 09/17/2024 4:17 PM CDT CBC WITH DIFFERENTIAL Routine 09/17/2024 4:13 PM CDT COMPREHENSIVE METABOLIC PANEL Routine 09/17/2024 3:08 PM CDT BASIC METABOLIC PANEL Routine 09/03/2024 4:02 PM CDT CBC WITH DIFFERENTIAL Routine 09/03/2024 3:45 PM CDT BASIC METABOLIC PANEL Routine 09/03/2024 3:15 PM CDT COMPREHENSIVE METABOLIC PANEL Routine 08/20/2024 12:24 PM CDT BASIC METABOLIC PANEL Routine 08/06/2024 4:26 PM CDT COMPREHENSIVE METABOLIC PANEL Routine 08/06/2024 11:51 AM CDT from Last 3 Months Results * BASIC METABOLIC PANEL (09/17/2024 4:17 PM CDT) Only the most recent of4 resultswithin the time period is included. Blood us Hunter Kaiser MD CHEMISTRY ORDERABLES Final Resu lt * CBC WITH DIFFERENTIAL (09/17/2024 4:13 PM CDT) Only the most recent of2 resultswithin the time period is included. Blood us Hunter Kaiser MD HEMATOLOGY ORDERABLES Final Res ult * COMPREHENSIVE METABOLIC PANEL (09/17/2024 3:08 PM CDT) Only the most recent of3 resultswithin the time period is included. Blood Hunter Kaiser MD CHEMISTRY ORDERABLES Final Resu lt from Last 3 Months Insurance [employer] MED[employer]ID [employer]
--- OUTSIDE RECORDS SUMMARY | 2024-09-24 08:34 | XMS_ITS | Encounter Summary ---
Author Organization [facility] Address [address] [place] [address] Care Team Providers Care Kiln Pusher Name Role Phone Unavailable Primary Care Provider Unavailabl e Encounter Details Date Type Department Care Team (Late Contact Info) Description 09/21/2024 Orders Only [facility] Oncology and Hematology [facility] [address] [place] [address] Hunter Kaiser MD [address] [place] [address] [employer] 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
--- OUTSIDE RECORDS SUMMARY | 2024-09-24 08:34 | XMS_ITS | Referral Summary ---
Author Organization [facility] Address [address] [place] [phone] Care Team Providers Care Ink Jet Operator Name Role Phone No, Physician Primary Care Provider [phone] Allergies No known active allergies Medications cyclobenzaprine [...] on file Legal Sex Male 8:38 PM VENDOR MANAGEMENT SPECIALIST Gender Identity Not on file Sexual Orientation Not on file Last Filed Vital Signs Vital Sign Reading Time Taken Comments Blood Pressure 159/82 06/15/2022 11:43 PM VENDOR MANAGEMENT SPECIALIST Pulse 89 06/15/2022 11:43 PM VENDOR MANAGEMENT SPECIALIST Temperature 36.6 C (97.9 F) 06/15/2022 11:43 PM VENDOR MANAGEMENT SPECIALIST Respiratory Rate 16 06/15/2022 11:4 3 PM VENDOR MANAGEMENT SPECIALIST Oxygen Saturation 96% 06/15/2022 11: 43 PM VENDOR MANAGEMENT SPECIALIST Inhaled Oxygen Concentration - - Weight 92.5 kg (203 lb 14.8 oz) 06/15/2022 8:52 PM VENDOR MANAGEMENT SPECIALIST Height 182.9 cm (6') 06/15/2022 8:52 PM VENDOR MANAGEMENT SPECIALIST Body Mass Index 27.66 06/15/2022 8:52 PM VENDOR MANAGEMENT SPECIALIST Plan of Treatment Not on file Insurance [facility] [id number] [place] [id number] Care Teams Ink Jet Operator Relationship Specialty Start Date End Date No, Physician PCP - General 06/15/22
== END 2024-09-24 08:32 | disposition home or self-care (01) ==
PROVIDERS: PCP Emergency Medicine; Visit Provider Internal Medicine Hematology & Oncology
DX: C34.11 Malignant neoplasm of upper lobe, right bronchus or lung (principal)
CPT/HCPCS: 71260; Q9967

== ENCOUNTER 2024-12-17 10:00 | Outpatient (CLI) | payer OTHER, SELFPAY ==
--- NOTE | ~2024-12-17 | CT_ITS ---
EXAMINATION: CT diagnostic chest w con DATE: 12/17/2024 10:36 INDICATION: Malignant neoplasm of the right lung TECHNIQUE: Computed tomography (CT) of the chest was performed without intravenous contrast. The dose -length product was 193.93 mGy-cm. COMPARISON: 09/24/2024 FINDINGS: No enlarged mediastinal or hilar lymph nodes. Heart is unenlarged. Thoracic aorta is is not aneurysmal. Visualized upper abdomen is unremarkable. Biapical scarring, unchanged. Paraseptal emphy sema, unchanged. No pneumothorax. No pleural effusion. No free air in the diaphragm. Stable probable postradiation change or other scarring in the medial right upper lobe extending toward the hilum. Oss eous structures are grossly unchanged. IMPRESSION: 1. Stable probable postradiation changes in the right upper lobe extending to the hilum. 2. Stable right upper lobe/apical emphysematous change Reviewed, dictated and finalized at location A. IMPRESSION: 1. Stable probable postradiation changes in the right upper lobe extending to t he hilum. 2. Stable right upper lobe/apical emphysematous change
--- OUTSIDE RECORDS SUMMARY | 2024-12-17 10:17 | XMS_ITS | Clinical Summary ---
Author Organization [facility] Address [address] [place] [address] Care Team Providers Care Medical Administrative Name Role Phone No, Physician Primary Care Provider Allergies Active Allergy Reactions Criticality Noted Date Comments Venom-Honey Bee Anaphylaxis High 12/05/2024 Medications cyclobenzaprine (FLEXERIL) 10 mg tablet Take 1 tablet (10 mg total) by mouth 2 (two) times a day as needed for muscle spasms 20 tablet 06/15/2022 Active ketorolac (TORADOL) 10 mg tablet Take 1 tablet (10 mg total) by mouth every 6 (six) hours as needed for pain 20 tablet 06/15/2022 Active amoxicillin-clav ulanate (AUGMENTIN) 875-125 mg per tablet Take 1 tablet by mouth every 12 (twelve) hours 14 tablet 12/05/2024 Active Encounters Date Type Department Care Team Description 12/05/2024 8:11 PM CDT - 12/05/2024 9:50 PM CDT Emergency [address] [address] Dog bite of left hand, initial encounter (Primary Dx) Discharge Disposition: Discharge to home or self care from Last 3 Months Immunizations Immunization Administration Dates Next Due Tdap 12/05/2024 Social History Tobacco Use Types Packs/Day Years Used Date Smoking Tobacco: Never Assessed Personal Safety Answer Date Recorded Have you ever been in or are you currently in a harmful physical or emotional relationship or is someone making you feel afraid or unsafe? 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 Gender Identity Not on file Sexual Orientation Not on file Last Filed Vital Signs Vital Sign Reading Time Taken Comments Blood Pressure 151/83 12/05/2024 7:24 PM CDT Pulse 75 12/05/2024 7:24 PM CDT Temperature 36.9 C (98.4 F) 12/05/2024 7:24 PM CDT Respiratory Rate 18 12/05/2024 7:24 PM CDT Oxygen Saturation 98% 12/05/2024 7:24 PM CDT Inhaled Oxygen Concentration - - Weight 90.7 kg (200 lb) 12/05/2024 7:37 PM CDT Height 182.9 cm (6') 06/15/2022 8:52 PM NUCLEAR WEAPONS CUSTODIAN Body Mass Index 27.12 06/15/2022 8:52 PM NUCLEAR WEAPONS CUSTODIAN Plan of Treatment Health Maintenance Due Date Last Done Comments Colon Cancer Screening-Colonoscopy 1962 Depression Screening 1962 Hepatitis C Screening 1962 Prostate Cancer Screening-PSA 1962 Hepatitis B Screening 1980 Regular Well Visit/Exam 18-64 1980 Zoster Vaccine (1 of 2) 2012 Influenza Vaccine (#1) 2025 DTaP/Tdap/Td Vaccine (2 - Td or Tdap) 12/05/2034 12/05/2024 Pneumococcal vaccine <65 Aged Out No longer eligible based on patient's age to complete this topic Procedures Procedure Name Priority Date/Time Associated Diagnosis Comments ED LACERATION REPAIR Routine 12/06/2024 5:21 AM CDT XR HAND LEFT 3 OR MORE VIEWS ED 12/05/2024 8:20 PM CDT from Last 3 Months Results * Laceration Repair (12/06/2024 5:21 AM CDT) Narrative Jenn Ortiz PA - 12/06/2024 5:21 AM CDT Jenn Ortiz PA 12/06/2024 5:21 AM Laceration Repair Date/Time: 12/06/2024 5:21 AM Performed by: Jenn Ortiz PA Authorized by: Zeenat Ojeda DO RN Notified of Procedure: yes Informed consent: Risks, benefits, alternatives discussed Patient's stated name/ matches armband: Yes Allergies confirmed: yes Anesthesia method: Local infiltration Local anesthetic: Lidocaine 1% Location: Finger Finger location: L long finger Length (cm): 3 Repair type: Simple Preparation: Patient was prepped and draped in usual sterile fashion Wound exploration: wound explored through full range of motion Area cleansed with: Betadine and Hibiclens Amount of cleaning: Extensive Repair method: Sutures Suture size: 4-0 Suture material: Nylon Suture technique: Simple interrupted Number of sutures: 4 Approximation: Loose Dressing: Antibiotic ointment Patient tolerance of procedure: Tolerated well, no immediate complications Zeenat Ojeda IN CLINIC/BEDSIDE ORDERABLES Fi nal Result * XR Hand Left 3 or More Views (12/05/2024 8:20 PM CDT) Anatomical Region Laterality Modality Upper Extremities, Hand Left Computed Radiography 12/05/2024 8:49 PM CDT Narrative 12/05/2024 9:05 PM CDT EXAM DESCRIPTION: XR HAND LEFT 3 OR MORE VIEWS REASON FOR STUDY: Pain, Upper Extremity Injury or Trauma c/o Dog bite on left middle finger and left index finger approximately 30 minutes FISH PROTECTOR. Son reports pt has been drinking to. Noted tissue hanging from the base of middle finger and puncture wound on the base of the index finger. Unknown last tetanus shot. Reports pain scale 2/10. Son reports the dog is fully vaccinated. Pt able to wiggle fingers TECHNIQUE: 3 radiographic view(s) of the left hand . COMPARISON: None available. FINDINGS: BONES/JOINTS: There is normal osseous alignment. No acute fracture or dislocation. Lkyi-tg-eczegory osteoarthritic changes of the distal greater than proximal interphalangeal joints as well as at the 1st and 2nd MCP and 1st CMC joints. SOFT TISSUES: Soft tissue swelling of the middle finger with likely laceration seen at the ulnar aspect proximally. IMPRESSION: 1. Soft tissue swelling with laceration of the middle finger. No radiopaque foreign body identified. 2. No acute osseous abnormality. THIS IS AN ELECTRONICALLY VERIFIED FINAL REPORT 12/05/2024 9:05 PM - Electronically signed by González Clement M.D. T: Report ID: [id number] Reading Location: [id number] Procedure Note González Clement, - 12/05/2024 EXAM DESCRIPTION: XR HAND LEFT 3 OR MORE VIEWS REASON FOR STUDY: Pain, Upper Extremity Injury or Trauma c/o Dog bite on left middle finger and left index finger approximately 30 minutes FISH PROTECTOR. Son reports pt has been drinking to. Noted tissue hangingfrom the base of middle finger and puncture wound on the base of the indexfinger. Unknown last tetanus shot. Reports pain scale 2/10. Son reports the dogis fully vaccinated. Pt able to wiggle fingers TECHNIQUE: 3 radiographic view(s) of the left hand . COMPARISON: None available. FINDINGS: BONES/JOINTS: There is normal osseous alignment. No acutefracture or dislocation. Nzvb-jm-eogdkjeu osteoarthritic changes of the distalgreater than proximal interphalangeal joints as well as at the 1st and 2nd MCP and1st CMC joints. SOFT TISSUES: Soft tissue swelling of the middle finger with likelylaceration seen at the ulnar aspect proximally. IMPRESSION: 1. Soft tissue swelling with laceration of the middle finger.No radiopaque foreign body identified. 2. No acute osseous abnormality. THIS IS AN ELECTRONICALLY VERIFIED FINAL REPORT 12/05/2024 9:05 PM - Electronically signed by González Clement M.D. T: Report ID: [id number] Reading Location: [id number] Jenn BLANCHARD IMG XR PROCEDURES Final Re sult from Last 3 Months Insurance [facility] Care Teams Medical Administrative Relationship Specialty Start Date End Date No, Physician PCP - General 06/15/22
--- OUTSIDE RECORDS SUMMARY | 2024-12-17 10:17 | XMS_ITS | Clinical Summary ---
Author Organization [facility] Shannan jackson [place] Address [address] [place] [address] Care Team Providers Care Trade Show Coordinator Name Role Phone Unavailable Primary Care Provider Unavailabl e Allergies Active Allergy Reactions Criticality Noted Date Comments Hornet Venom Anaphylaxis High 09/30/2018 Medications gabapentin (NEURONTIN) 300 mg capsule TAKE 1 CAPSULE(300 MG) BY MOUTH THREE TIMES DAILY 90 Capsule 3 11/09/2024 Active Active Problems No known active problems Encounters Date Type Department Care Team Description 12/14/2024 Orders Only [facility] Oncology and Hematology - [address] Hunter Kaiser MD Benign hypertension 12/11/2024 Orders Only [facility] Oncology and Hematology - [address] [place] [phone] Hunter Kaiser MD 12/07/2024 Orders Only [facility] Oncology and Hematology - [place] [place] [address] Hunter Kaiser MD Malignant neoplasm of upper lobe of right lung (CMS/HCC) 12/01/2024 Orders Only [facility] Oncology and Hematology - [place] [address] [facility] [place] [address] Hunter Kaiser MD 11/30/2024 Orders Only [facility] Oncology and Hematology - [place] [address] [place] [id number] Hunter Kaiesr MD Benign hypertension 11/26/2024 8:30 AM CDT Office Visit [facility] Oncology and Hematology - [address] [place] [address] Hunter Kaiser MD Malignant neoplasm of upper lobe of right lung (CMS/HCC) (Primary Dx) 11/26/2024 Orders Only [facility] Oncology and Hematology - [address] [place] [address] Hunter Kaiser MD 11/25/2024 Orders Only [facility] Oncology and Hematology - [address] [place] [address] Hunter Kaiser MD Need for hepatitis B screening test (Primary Dx) 11/23/2024 Orders Only [facility] Oncology and Hematology - [address] [place] [address] Hunter Kaiser MD Malignant neoplasm of upper lobe of right lung (CMS/HCC) 11/18/2024 External Device Data STL ABSTRACTION Provider, Abstract 11/16/2024 Orders Only [facility] Oncology and Hematology - [address] [place] [address] Hunter Kaiser MD Benign hypertension 11/09/2024 Orders Only [facility] Oncology and Hematology - [address] [place] [address] Hunter Kaiser MD Malignant neoplasm of upper lobe of right lung (CMS/HCC) 11/07/2024 Refill [facility] Oncology and Hematology - [address] [place] [address] Hunter Kaiser MD 11/02/2024 Orders Only [facility] Oncology and Hematology - [address] [place] [address] Hunter Kaiser MD Benign hypertension 10/30/2024 Orders Only [facility] Oncology and Hematology - [address] [place] [phone] Hunter Kaiser MD 10/29/2024 11:00 AM CDT Office Visit [facility] Oncology and Hematology - [address] [place] [phone] Hunter Kaiser MD Malignant neoplasm of upper lobe of right lung (CMS/HCC) (Primary Dx) 10/26/2024 Orders Only [facility] Oncology and Hematology - [address] [place] [phone] Hunter Kaiser MD Malignant neoplasm of upper lobe of right lung (CMS/HCC) 10/21/2024 External Device Data STL ABSTRACTION Provider, Abstract 10/19/2024 Orders Only [facility] Oncology and Hematology - [address] Hunter Kaiser MD Benign hypertension 10/15/2024 Orders Only [facility] Oncology and Hematology - [address] [place] [id number] Hunter Kaiser MD 10/12/2024 Orders Only [facility] Oncology and Hematology - [address] [place] [phone] Hunter Kaiser MD Malignant neoplasm of upper lobe of right lung (CMS/HCC) 10/05/2024 Orders Only [facility] Oncology and Hematology - [place] [place] [address] Hunter Kaiser MD Benign hypertension 10/01/2024 9:00 AM CDT Office Visit [facility] Oncology and Hematology - [address] [place] [id number] Hunter Kaiser MD Malignant neoplasm of upper lobe of right lung (CMS/HCC) (Primary Dx) 10/01/2024 Orders Only [facility] Oncology and Hematology - [address] [place] [phone] Hunter Kaiser MD 09/28/2024 Orders Only [facility] Oncology and Hematology - [address] [place] [id number] Hunter Kaiser MD Malignant neoplasm of upper lobe of right lung (CMS/HCC) 09/24/2024 Orders Only [facility] Oncology and Hematology - [address] [place] [phone] Hunter Kaiser MD 09/21/2024 Orders Only [facility] Oncology and Hematology - [address] [place] [address] Hunter Kaiser MD Benign hypertension 09/18/2024 Orders Only [facility] Oncology and Hematology - [address] [place] [address] Hunter Kaiser MD 09/17/2024 Orders Only [facility] Oncology and Hematology - [address] [place] [address] Hunter Kaiser MD from Last 3 Months Family History Medical [...] on file Legal 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 Gender Identity Not on file Sexual Orientation Not on file Last Filed Vital Signs Vital Sign Reading Time Taken Comments Blood Pressure 122/62 11/26/2024 8:45 AM CDT Pulse 78 11/26/2024 8:45 AM CDT Temperature 36.3 C (97.3 F) 11/26/2024 8:45 AM CDT Respiratory Rate 15 11/26/2024 8:45 AM CDT Oxygen Saturation 97% 11/26/2024 8:45 AM CDT Inhaled Oxygen Concentration - - Weight 88.5 kg (195 lb 3.2 oz) 11/26/2024 8:45 A M CDT Height 182.9 cm (6') 07/08/2023 8:10 AM STUDENT SERVICES DEAN Body Mass Index 26.47 07/08/2023 8:10 AM STUDENT SERVICES DEAN Plan of Treatment Health Maintenance Due Date Last Done Comments Pre-Diabetes and Diabetes Screening 1962 DTAP/TDAP/TD VACCINES (1 - Tdap) 1981 COLORECTAL SCREENING 2007 Colorectal Cancer Screening 2007 FIT-DNA Q 3 years 2007 FIT/FOBT Q 1 year 2007 Flex Sig/CT Colonography Q 5 years 2007 ZOSTER VACCINE (1 of 2) 2012 INFLUENZA VACCINE (#1) 2024 RSV VACCINE (60+ or ) (1 - 1-dose 75+ series) 2037 Procedures Procedure Name Priority Date/Time Associated Diagnosis Comments BASIC METABOLIC PANEL Routine 12/10/2024 8:28 AM CDT COMPREHENSIVE METABOLIC PANEL Routine 12/10/2024 8:27 AM CDT QUANTIFERON TB CONFIRMATION Routine 11/26/2024 3:49 PM CDT HEPATITIS B CORE AB TOTAL Routine 2024 2:54 PM CDT BASIC METABOLIC PANEL Routine 11/26/2024 2:26 PM CDT COMPREHENSIVE METABOLIC PANEL Routine 11/26/2024 2:24 PM CDT BASIC METABOLIC PANEL Routine 10/29/2024 7:52 AM CDT COMPREHENSIVE METABOLIC PANEL Routine 10/29/2024 7:48 AM CDT COMPREHENSIVE METABOLIC PANEL Routine 10/15/2024 3:41 PM CDT BASIC METABOLIC PANEL Routine 10/15/2024 12:34 PM CDT CBC MIXED CELL DIFFERENTIAL Routine 10/15/2024 12:31 PM CDT BASIC METABOLIC PANEL Routine 10/01/2024 3:39 PM CDT COMPREHENSIVE METABOLIC PANEL Routine 10/01/2024 3:[address] CHEST W CONTRAST Routine 09/24/2024 2 :56 PM CDT BASIC METABOLIC PANEL Routine 09/17/2024 4:17 PM CDT CBC WITH DIFFERENTIAL Routine 09/17/2024 4:13 PM CDT COMPREHENSIVE METABOLIC PANEL Routine 09/17/2024 3:08 PM CDT from Last 3 Months Results * BASIC METABOLIC PANEL (12/10/2024 8:28 AM CDT) Only the most recent of6 resultswithin the time period is included. Blood us Hunter Kaiser MD CHEMISTRY ORDERABLES Final Resu lt * COMPREHENSIVE METABOLIC PANEL (12/10/2024 8:27 AM CDT) Only the most recent of6 resultswithin the time period is included. Blood us Hunter Kaiser MD CHEMISTRY ORDERABLES Final Resu lt * QUANTIFERON TB CONFIRMATION (11/26/2024 3:49 PM CDT) Blood us Hunter Kaiser MD CHEMISTRY ORDERABLES Final Resu lt * HEPATITIS B CORE AB TOTAL (11/26/2024 2:54 PM CDT) Blood Result Helga Kaiser MD CHEMISTRY ORDERABLES Final Resu lt * CBC MIXED CELL DIFFERENTIAL (10/15/2024 12:31 PM CDT) Blood us Hunter Kaiser MD HEMATOLOGY ORDERABLES Final Res ult * CT CHEST W CONTRAST (09/24/2024 2:56 PM CDT) Anatomical Region Laterality Modality Chest Computed Tomogra phy Result Helga Kaiser MD CT ORDERABLES Final Result * CBC WITH DIFFERENTIAL (09/17/2024 4:13 PM CDT) Blood Hunter Kaiser MD HEMATOLOGY ORDERABLES Final Res ult from Last [address] [place] [address] [place] [address] MEDICAID [facility] MEDICAID
--- OUTSIDE RECORDS SUMMARY | 2024-12-17 10:17 | XMS_ITS | Clinical Summary ---
Author Organization [facility] Address [address] [place] [address] Care Team Providers Care Convention Worker Name Role Phone None, Provider Primary Care Provider Davon Da Silva MD Unavailable [phone] Allergies Active Allergy Reactions Criticality Noted Date Comments Hornet Venom Anaphylaxis High 09/30/2018 Medications multivitamin (THERA) tablet Take 1 tablet by mouth daily. Active methocarbamol (ROBAXIN-750) 750 MG Tab Take 1 tablet (750 mg total) by mouth every 8 (eight) hours as needed. 30 tablet 05/27/2023 Active lidocaine (LIDO CELESTINO) 4 % patch Place 1 patch onto the skin daily. Remove & Discard patch within 12 hours or as directed 30 patch 05/27/2023 Active Active Problems Problem Noted Date Diagnosed Date Fever of unknown origin 02/24/2023 Family History Medical History Relation Comments Stroke Father Relation Status Comments Father Social History Tobacco Use Types Packs/Day Years Used Date Smoking Tobacco: Every Day Cigarettes Smokeless Tobacco: Never Tobacco Cessation:Ready to Q uit: Not Asked; Counseling Given: Not Answered Alcohol Use Standard Drinks/Week Comments Yes 51.7 (1 standard drink = 0.6 oz pure alcohol) drinks Stag daily Social Connection and Isolat ion Panel [NHANES] Answer Date Recorded In a typical week, how many times do you talk on the phone with family, friends, or neighbors? More than three times a week 02/24/2023 Frequency of Social Gatherin gs with Friends and Family Not on file 02/24/2023 Attends Spiritism Services Not on file 02/24 Active Member of Clubs or Organizations Not on f ile 02/24/2023 Attends Club or Organization Meetings Not on chang e 02/24/2023 Marital Status Not on file 02/24/2023 AUDIT-C Answer Date Recorded Q1: How often do you have a drink containing alcohol? 4 or more times a week 02/24/2023 Q2: How many drinks containi ng alcohol do you have on a typical day when you are drinking? 10 or more Q3: How often do you have si x or more drinks on one occasion? Daily or almost daily 02/24/2023 [facility] - Occupational Stress Questionnaire Answer Date Recorded Do you feel stress - tense, restless, nervous, or anxious, or unable to sleep at night because your mind is troubled all the time - these days? Only a little 02/24/2023 Hunger Vital Sign Answer Date Recorded Within the past 12 months, y ou worried that your food would run out before you got the money to buy more. Never true 02/25/20 23 Within the past 12 months, t he food you bought just didn't last and you didn't have money to get more. Never true 02/24/2023 Sex and Gender Information Value Date Recorded Sex Assigned at Not on file Legal Sex Male 10:20 PM CDT Gender Identity Not on file Sexual Orientation Not on file Last Filed Vital Signs Vital Sign Reading Time Taken Comments Blood Pressure 174/94 05/27/2023 11:43 AM MARKET RESEARCH EXECUTIVE Pulse 99 05/27/2023 11:43 AM MARKET RESEARCH EXECUTIVE Temperature 36.6 C (97.8 F) 05/27/2023 11:43 AM MARKET RESEARCH EXECUTIVE Respiratory Rate 19 05/27/2023 11:43 AM MARKET RESEARCH EXECUTIVE Oxygen Saturation 100% 05/27/2023 11:43 AM MARKET RESEARCH EXECUTIVE Inhaled Oxygen Concentration - - Weight 97.8 kg (215 lb 9.8 oz) 05/27/2023 11:43 AM MARKET RESEARCH EXECUTIVE Height 182.9 cm (6') 05/27/2023 11:43 AM MARKET RESEARCH EXECUTIVE Body Mass Index 29.24 05/27/2023 11:43 AM MARKET RESEARCH EXECUTIVE Plan of Treatment Health Maintenance Due Date Last Done Comments Colorectal Cancer Screening Colonoscopy (10 Years) 1962 Annual Physical 1965 Hepatitis C 1980 DTaP, Tdap and Td Vaccines ( 1 - Tdap) 1981 Pneumococcal Vaccine: 50+ Ye ars (1 of 2 - PCV) 1981 Zoster Vaccines (1 of 2) 2012 COVID-19 Vaccine (1 - 2023-2 5 season) 2024 RSV Immunization or 60+ Years (1 - 1-dose 75+ series) 2037 Meningococcal B Vaccine Aged Out No l onger eligible based on patient's age to complete this topic Meningococcal Vaccine Aged Out No gianfranco evelyne eligible based on patient's age to complete this topic RSV Immunizations Under 20 Months Aged Out No longer eligible based on patient's age to complete this topic Goals Goal Patient Goal Type Associated Problems Recent Progress Patient-Stated? Author Family - family caregiver with be involved in care transitions and discharge planning Lifestyle No Lis Pearce, CONFERENCE TRANSLATOR Advance Directives * Full Code (Latest Code Status on File) Date Activated Date Inactivated Comments 02/24/2023 4:15 PM 02/25/2023 8:15 PM Care Teams Convention Worker Relationship Specialty Start Date End Date None, Provider, PCP - General 09/30/18 Davon Nickerson MD [facility] [address] [place] [address] [place] Ict Account Manager CARDIOVASCULAR DISEASE 10/06/18
--- OUTSIDE RECORDS SUMMARY | 2024-12-17 10:17 | XMS_ITS | Encounter Summary ---
Author Organization [facility] [employer] [facility] Address [address] [place] [address] Care Team Providers Care Revenue Field Auditor Name Role Phone Unavailable Primary Care Provider Unavailabl e Encounter Details Date Type Department Care Team (Late st Contact Info) Description 12/14/2024 Orders Only [facility] Oncology and Hematology - [address] [facility] [address] [place] [address] Hunter Kaiser MD [address] [facility] [address] [place] [address] Benign hypertension Social History Tobacco Use Types Packs/Day Years Used Date Smoking Tobacco: Every Day Cigarettes Smokeless Tobacco: Never Alcohol Use Standard Drinks/Week Comments Yes 0 (1 standard drink = 0.6 oz pur e alcohol) Sex and Gender Information Value Date Recorded Sex Assigned at Not on file 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
== END 2024-12-17 10:01 | disposition home or self-care (01) ==
PROVIDERS: PCP Emergency Medicine; Visit Provider Internal Medicine Hematology & Oncology
DX: C34.11 Malignant neoplasm of upper lobe, right bronchus or lung (principal)
CPT/HCPCS: 71260; Q9967